=== PATIENT | female | born 1960 | race Caucasian/White ===

== ENCOUNTER 2016-10-11 14:00 | Inpatient (IN) | payer BC ==
--- NOTE | ~2016-10-11 | PN ---
Unit #: [id number] #: [id number] Patient: NACHO WELCH [id number] [facility] [address] [place] [address] [id number] I MR#: [id number] NAME: NACHO WELCH ROOM: P254 Age: 56 Sex: F Admission Date: 10/11/2016 : 1960 Attending Physician: Radha Carr M.D. Admitting Physician: Radha Carr M.D. Primary Care Physician: Primary Care Physician Tanja REMY NOTES DATE October 14, 2016 DISCUSSION Ms. Welch is a 56-year-old white female, who was seen today and chart was reviewed and the case was discussed with the staff. She has been anxious, withdrawn, depressed, and rather seclusive to herself but has been taking the medications and tolerating them fairly well with no reported side effects. MENTAL STATUS EXAMINATION Middle-aged white female, who was casually dressed with fair personal hygiene and appears to be in no acute distress or discomfort. The patient was awake and alert on interaction with intact orientation. Her mood was anxious with a congruent affect. The patient denies any suicidal or homicidal ideations. Her insight and judgment remain slightly impaired. TREATMENT PLAN 1. We will continue her on her current medications and treatment protocol, and will monitor her response, and make further adjustments as needed. 2. We will continue to followup. Dictated by... Jeff Gallego/fernando TD: 10/14/2016 12:16 JOB #: [id number] Unit #: [id number] #: [id number] Patient: NACHO WELCH ROLFISHMAEL PROGRESS NOTES Page 1 of 1 X Radha Carr MD PROGRESS NOTE
--- NOTE | ~2016-10-11 | HP ---
Unit #: [id number] #: [id number] Patient: IOANA JOLLY [id number] [place] [address] [id number] MR#: [id number] NAME: IOANA JOLLY. ROOM: P254 Age: 56 Sex: F Admission Date: 10/11/2016 : 1960 Attending Physician: Radha Carr M.D. Admitting Physician: Radha Carr M.D. Primary Care Physician: Primary Care Physician No HISTORY AND PHYSICAL HISTORY OF PRESENT ILLNESS Ioana is a 56 year old admitted to [address] [place] [address] because of her bipolar disorder. PAST MEDICAL HISTORY 1. Obesity 2. Hyperlipidemia 3. Degenerative disc disease PAST SURGICAL HISTORY 1. Appendectomy 2. T&A 3. section x1 4. Hysterectomy ALLERGIES No known drug allergies. SOCIAL HISTORY She does not smoke. Drinks alcohol on occasion and admits to using marijuana. FAMILY HISTORY Medically noncontributory. REVIEW OF SYSTEMS CONSTITUTIONAL: No fever or chills. HEENT: Denies any sore throat, ear pain or runny nose. CARDIOVASCULAR: Denies chest pain, irregular heart rhythm or palpitations. CHEST: Denies shortness of breath or cough. No hemoptysis. GASTROINTESTINAL: Denies nausea, vomiting, diarrhea or chronic constipation. ENDOCRINE: Denies history of increased thirst or urination. No recent significant weight loss or gain. GENITOURINARY: Denies dysuria, frequency, or hematuria. SKIN: Denies any rashes. HEMATOLOGIC: Denies history of increased bleeding or bruising. MUSCULOSKELETAL: Denies any hot, swollen joints. No generalized muscle pain. NEUROLOGIC: Denies problems with vision or speech. No frequent, severe headaches. No numbness, tingling or weakness in any extremities. Denies loss of bladder or bowel control. Unit #: [id number] #: [id number] Patient: IOANA JOLLY CURRENT MEDICATIONS 1. Latuda 40 mg q day 2. Wellbutrin XL 150 mg q a.m. 3. Desyrel 100 mg q.h.s. p.r.n. 4. Milk of Magnesia p.r.n. 5. Maalox p.r.n. 6. Tylenol p.r.n. PHYSICAL EXAMINATION GENERAL: Alert, well-nourished, in no apparent distress. VITAL SIGNS: Blood pressure 115/74, heart rate 92, respirations 16, temperature 98.6. WEIGHT: 175 pounds. HEIGHT: 5'4". SKIN: Warm and dry without rash or lesion. HEENT: Normocephalic. TMs not viewed. Oral and nasal passages clear. Conjunctivae clear. Pupils equal, round and reactive to light and accommodation. Extraocular movements intact. NECK: Supple without lymphadenopathy or thyromegaly. HEART: Regular rate and rhythm without murmur. LUNGS: Clear. ABDOMEN: Soft, nontender. : Not done. EXTREMITIES: No evidence of cyanosis, clubbing or edema. Moves all extremities without focal deficit. NEUROLOGICAL: Grossly within normal limits. Cranial Nerves: II: Visual morse are intact. III, IV AND : Extraocular movements are intact. Pupils are equal, round and reactive to light. V: Facial sensation is grossly normal. VII: Facial movements and expression are normal. VIII: Auditory acuity grossly intact. IX, X: Uvula is midline. Phonation is normal. XI: Patient shrugs shoulders and turns head normally. XII: Tongue protrudes in the midline. Sensory and Motor Function: Sensory and motor sensation is grossly normal. Motor: moves all extremities well. Coordination: Gait is normal. Deep Tendon Reflexes: Intact. IMPRESSION Psychiatric admission RECOMMENDATIONS PSYCHIATRIC: Per psychiatrist. MEDICAL: I see no contraindications to participating in facility's activities. MEDICAL PROGNOSIS Good. MEDICAL CONDITION Stable. Dictated by... Unit #: [id number] #: [id number] Patient: SHANAEIOANA Piedad Mya Malik P.AOfelia-Alise. for Jeff Fairchild/guera TD: 10/13/2016 00:31 JOB #: [id number] HISTORY AND PHYSICAL Page 1 of 1 X Mya Malik HISTORY AND PHYSICAL
--- NOTE | ~2016-10-11 | CO ---
Unit #: [id number] #: [id number] Patient: IOANA JOLLY [id number] [facility] [address] [place] [address] [id number] I MR#: [id number] NAME: IOANA JOLLY ROOM: P254 Age: 56 Sex: F Admission Date: 10/11/2016 : 1960 Attending Physician: Radha Carr M.D. Primary Care Physician: Primary Care Physician No Consultation Date: 10/12/2016 CONSULTATION REPORT SUBJECTIVE Ioana is a 56-year-old who complains of urinary leakage on occasion. She tells me that this is a chronic problem and there has been no change in the frequency or volume of her leakage. 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 Dictated by... Mya Malik P.A.-C. for Jeff Fairchild/michael TD: 10/17/2016 02:12 JOB #: [id number] CONSULTATION REPORT Page 1 of 1 X Mya Malik CONSULTATION REPORT
--- NOTE | ~2016-10-11 | DS ---
Unit #: [id number] #: [id number] [facility] [id number] [facility] [address] [place] [address] [id number] I MR#: [id number] NAME: NACHO WELCH ROOM: [facility] Age: 56 Sex: F Admission Date: 10/11/2016 : 1960 Discharge Date: 10/16/2016 Attending Physician: Radha Carr M.D. Primary Care Physician: Primary Care Physician No DISCHARGE SUMMARY IDENTIFYING DATA Ms. Welch is a 56-year-old white female who is a resident of [place], [place], and was brought to the hospital accompanied by her . DISCHARGE DIAGNOSES Psychiatric: Bipolar disorder, most recent episode depressed, recurrent, moderate, with psychosis. Medical: None. Stressors: Moderate psychosocial stressors. HISTORY OF PRESENT ILLNESS Please see initial psychiatric evaluation for details. PAST PSYCHIATRIC HISTORY Please see initial psychiatric evaluation for details. PAST MEDICAL HISTORY Please see initial psychiatric evaluation for details. HOSPITAL COURSE The patient was admitted to the adult psychiatric unit at [facility] en[facility] Dom[facility]ng[facility] and was oriented to the hospital environment. Routine p.r.n. medications were initiated, and she was started on a combination of Wellbutrin and Latuda to help with bipolar and depression and was closely monitored. She was taking the medications regularly and was tolerating them fairly well and was able to show a decent therapeutic response with improvement in depression and anxiety and was willing to continue treatment on an outpatient basis, and as such, it was decided that she will be discharged home and will continue treatment on an outpatient basis. DISCHARGE MEDICATIONS Wellbutrin XL 150 mg in the morning for depression and Latuda 40 mg in the evening for bipolar. DISCHARGE CONDITION Stable. PROGNOSIS Fair. Dictated by... Radha Carr M.D. Unit #: [id number] #: [id number] Patient: NACHO WELCH IAA/modl TD: 10/16/2016 09:32 JOB #: [id number] DISCHARGE SUMMARY Page 1 of 1 X Radha Carr MD DISCHARGE SUMMARY
--- NOTE | ~2016-10-11 | PN ---
Unit #: [id number] #: [id number] Patient: NACHO WELCH [id number] [facility] [address] [place] [address] [id number] MR#: [id number] NAME: NACHO WELCH ROOM: P254 Age: 56 Sex: F Admission Date: 10/11/2016 : 1960 Attending Physician: Radha Carr M.D. Admitting Physician: Radha Carr M.D. Primary Care Physician: Primary Care Physician Tanja WIGGINS PROGRESS NOTES DATE 10/15/2016 DISCUSSION Ms. Welch is a 56-year-old white female who was seen today and chart was reviewed and case was discussed with the staff. She has been anxious, withdrawn and rather seclusive to herself. Meanwhile, she appears to be feeling better on her depressive symptoms as she has been cooperative and compliant with the treatment recommendations. She has been taking the medications and tolerating them fairly well with no reported side effects. MENTAL STATUS EXAMINATION Middle-aged white female who was casually dressed with fair personal hygiene, appears to be in no acute distress or discomfort. She was awake and alert on interaction with intact orientation. Her mood was anxious and depressed with congruent affect. She denies any suicidal or homicidal ideations. Her insight and judgement remains slightly impaired. TREATMENT PLAN 1. We will continue her on her current medications and treatment protocol. We will monitor her response to the medications and make further adjustments as needed. 2. We will continue to follow up. Dictated by... Jeff Gallego/guera TD: 10/16/2016 02:46 JOB #: [id number] Unit #: [id number] #: [id number] Patient: NACHO WELCH PROGRESS NOTES Page 1 of 1 X Radha Carr MD PROGRESS NOTE
--- NOTE | ~2016-10-11 | PA ---
Unit #: [id number] #: [id number] Patient: NACHO WELCH [id number] [facility] [address] [place] [address] [id number] I MR#: [id number] NAME: NACHO WELCH. ROOM: P254 Age: 56 Sex: F Admission Date: 10/11/2016 : 1960 Date of Assessment: 10/12/2016 Attending Physician: Radha Carr M.D. Admitting Physician: Radha Carr M.D. Primary Care Physician: Primary Care Physician No PSYCHIATRIC ASSESSMENT DATE OF SERVICE 10/12/2016. IDENTIFYING DATA Ms. Welch is a 56-year-old white female, who is a resident of [place], [place], and was brought to the hospital accompanied by her . CHIEF COMPLAINT "I want to kill myself." HISTORY OF PRESENT ILLNESS Ms. Welch is a 56-year-old white female, who was brought to the hospital with increasing symptoms of depression for the last 2 weeks and reports increasing depression, anxiety, feelings of hopelessness and helplessness, psychomotor retardation, and suicidal ideations and she stated "I want to kill myself. I'm tired of being a burden to my family." The patient reports decrease in sleep and appetite and difficulty focusing and concentrating and recently started hearing voices and having auditory hallucinations, though the hallucinations are not command in nature; however, she was seen to be decompensating significantly on her mood and daily functioning and was seen to be a danger to self and therefore recommendation for inpatient level of care for safety and stabilization was made and the patient was transferred to us. SUBSTANCE ABUSE HISTORY The patient does not have any history of alcohol or drug abuse. PAST PSYCHIATRIC HISTORY The patient has had a history of inpatient psychiatric hospitalization in [place] in the past, though currently she is not active in any treatment program, is not seeing a psychiatrist, and is not taking any psychotropic medications. PAST MEDICAL HISTORY No acute or chronic medical illnesses. ALLERGIES No know medication allergies. CURRENT MEDICATIONS None. Unit #: [id number] #: [id number] Patient: NACHO WELCH PERSONAL AND SOCIAL HISTORY A 56-year-old white female, who reports that she is and lives at home with her and her son and has fairly decent social support system. MENTAL STATUS EXAMINATION Middle-aged white female, who was casually dressed with fair personal hygiene, appears to be in no acute distress or discomfort. She was awake and alert on interaction with intact orientation to time, place, and person. Her mood was anxious and depressed with a congruent affect. Her speech was slow and restricted in content. She reports having suicidal ideations, but denies any homicidal ideations and also denies any auditory or visual hallucinations. Her insight and judgment remain significantly impaired. DIAGNOSTIC IMPRESSION Psychiatric: Bipolar disorder, most recent episode depressed, recurrent, moderate, with psychosis. Medical: None. Stressors: Moderate psychosocial stressors. TREATMENT PLAN 1. The patient has presented with a history of mood disorder and has been decompensating and will need inpatient hospitalization for safety and stabilization. We will start her back on her home medications and we will adjust the medications and monitor response. 2. Supportive therapy was provided to the patient. 3. Safe, structured, and nourishing environment will be provided. ESTIMATED LENGTH OF STAY 5 to 7 days. ABILITY TO HELP SELF Limited. WILLINGNESS TO HELP SELF The patient appears to be willing to help self. STRENGTHS 1. Communicative. 2. Cooperative. PROBLEMS 1. Chronic dysphoric symptoms. 2. Poor social support system. DISCHARGE CRITERIA This will be contingent upon the patient's ability to show resolution of her depression and anxiety and psychosis as well as her ability to stay safe to herself, particularly after discharge from the hospital. Dictated by... Radha Carr M.D. NICCI/michael TD: 10/12/2016 11:48 Unit #: [id number] #: [id number] Patient: NACHO WELCH JOB #: [id number] PSYCHIATRIC ASSESSMENT Page 1 of 1 X Radha Carr MD PSYCHIATRIC ASSESSMENT
--- NOTE | ~2016-10-11 | PN ---
Unit #: [id number] #: [id number] Patient: NACHO WELCH [id number] [facility] [address] [place] [address] [id number] MR#: [id number] NAME: NACHO WELCH ROOM: P254 Age: 56 Sex: F Admission Date: 10/11/2016 : 1960 Attending Physician: Radha Carr M.D. Admitting Physician: Radha Carr M.D. Primary Care Physician: Primary Care Physician Tanja REMY NOTES DATE OF SERVICE: 10/13/2016 SUBJECTIVE Ms. Welch is a 56-year-old white female, who was seen today and chart reviewed and the case was discussed with the staff. She has been anxious, withdrawn, and rather seclusive to herself. Meanwhile, she has been cooperative with the treatment recommendations and has been taking the medications and tolerating them fairly well with no reported side effects. MENTAL STATUS EXAMINATION Young white female, who was casually dressed with fair personal hygiene, appears to be in no acute distress or discomfort. She was awake and alert on interaction with intact orientation. Her mood was anxious with a congruent affect. She denies any suicidal or homicidal ideations. Her insight and judgment remain significantly impaired. TREATMENT PLAN 1. We will continue her on her current medications and treatment protocol. We will monitor her response to the medication and make further adjustments as needed. 2. We will continue to follow up. Dictated by... Jeff Gallego/jerol TD: 10/14/2016 01:12 JOB #: [id number] [facility] PROGRESS NOTES Page 1 of 1 X Radha Carr MD PROGRESS NOTE
[2016-10-12 09:44] LABS: BASOPHIL# 0.1 X10e3 (0-0.3); BASOPHIL% 0.6 % (0-2.5); EOSINOPHIL# 0.1 X10e3 (0-0.7); EOSINOPHIL% 1.4 % (0.0-7.0); HEMATOCRIT 45.4 % (35.0-45.0); HEMOGLOBIN 15.4 gm/dL (12.0-16.0); LYMPHOCYTE# 2.1 X10e3 (1.0-3.5); LYMPHOCYTE% 24.4 % (17.0-45.0); MEAN CELL VOLUME 87.2 FL (83-96); MEAN CORPUSCULAR HEMOGLOBIN 29.5 PG (28-34); MEAN CORPUSCULAR HGB CONC 33.8 g/dL (30-36); MONOCYTE# 0.5 X10e3 (0-1.0); MONOCYTE% 6.2 % (3.0-12.0); NEUTROPHIL# 5.9 X10e3 (1.5-7.1); NEUTROPHIL% 67.4 % (40-75); PLATELET COUNT 222 X10e3 (140-420); RED BLOOD COUNT 5.21 X10e (3.90-5.30); RED CELL DISTRIBUTION WIDTH 13.6 % (11.0-15.5); WHITE BLOOD COUNT 8.8 X10e3 (4.0-10.5)
[2016-10-12 09:52] LABS: DIFF IND NO
[2016-10-12 10:29] LABS: BILIRUBIN,TOTAL 0.8 mg/dL (0.2-2.0); CALCIUM SERUM 9.7 mg/dL (8.4-10.2); CREATININE SERUM 0.6 mg/dL (0.6-1.4); GLOM FILT RATE Estimated 103.3 mL/min (>60); POTASSIUM 3.9 mmol/L (3.5-5.1); PROTEIN TOTAL SERUM 6.6 g/dL (6.0-8.3)
[2016-10-12 12:52] LABS: URINE APPEARANCE CLOUDY; URINE BILIRUBIN NEG (NEG); URINE BLOOD NEG (NEG); URINE COLOR YELLOW; URINE GLUCOSE NEG (NEG); URINE KETONE NEG (NEG); URINE LEUKOCYTE ESTERASE NEG (NEG); URINE NITRATE NEG (NEG); URINE PROTEIN NEG (NEG); URINE SPECIFIC GRAVITY 1.022 (1.003-1.035)
[2016-10-12 13:12] LABS: AMPHETAMINE NEG (NEG); BARBITURATES NEG (NEG); BENZODIAZEPINES NEG (NEG); COCAINE NEG (NEG); MARIJUANA POS (NEG); OPIATES NEG (NEG); TRICYCLIC ANTIDEPRESSANTS NEG (NEG); U METHADONE NEG (NEG)
== END 2016-10-16 09:30 | disposition home or self-care (01) | DRG 885 ==
LOC: P2L 21:40
PROVIDERS: Psychiatry & Neurology Psychiatry
DX: F31.32 Bipolar disorder, current episode depressed, moderate (principal); E78.5 Hyperlipidemia, unspecified; F29 Unspecified psychosis not due to a substance or known physiological condition; F41.9 Anxiety disorder, unspecified; E66.9 Obesity, unspecified; Z90.710 Acquired absence of both cervix and uterus
CPT/HCPCS: 80053; 80178; 80307; 81003; 85025